=== PATIENT | female | born 1980 | race Hispanic/Latino ===

== ENCOUNTER 2016-10-23 17:34 | Inpatient (IN) | payer MEDICAID ==
--- NOTE | 2016-10-23 18:16 | C.PDOC ---
History Of Present Illness Pt was transferred here for psychiatric admission. Pt was medically cleared at the transferring facility. Time Seen by Provider: 10/23/16 18:05 Chief Complaint (Nursing): Psychiatric Evaluation History Per: Patient Onset/Duration Of Symptoms: Days Current Symptoms Are (Timing): Still Present Modifying Factor(s): Narcotics Severity: Moderate Associated Symptoms: Depression Additional History Per: Prior Records Past Medical History Reviewed: Historical Data, Nursing Documentation, Vital Signs Vital Signs: Last Vital Signs Temp 98.5 F 10/23/16 17:56 Pulse 73 10/23/16 17:56 Resp 18 10/23/16 17:56 BP 126/87 10/23/16 17:56 Pulse Ox 97 10/23/16 17:56 - Medical History PMH: No Chronic Diseases Surgical History: No Surg Hx Family History: States: Unknown Family Hx - Social History Hx Tobacco Use: Yes Hx Alcohol Use: No Hx Substance Use: Yes (heroin iv use) - Immunization History Hx Tetanus Toxoid Vaccination: No Hx Influenza Vaccination: No Hx Pneumococcal Vaccination: No Review Of Systems Except As Marked, All Systems Reviewed And Found Negative. Constitutional: Negative for: Fever Cardiovascular: Negative for: Chest Pain Respiratory: Negative for: Shortness of Breath Gastrointestinal: Negative for: Vomiting Musculoskeletal: Negative for: Neck Pain Skin: Negative for: Rash Neurological: Negative for: Weakness, Numbness, Seizures, Altered Mental Status Physical Exam - Physical Exam Appears: Non-toxic, No Acute Distress Skin: Normal Color, Warm, Dry Head: Atraumatic, Normacephalic Eye(s): bilateral: PERRL, EOMI Neck: Normal ROM, Supple Cardiovascular: Rhythm Regular Respiratory: Normal Breath Sounds, No Accessory Muscle Use Gastrointestinal/Abdominal: Soft Extremity: Normal ROM Neurological/Psych: Oriented x3, Normal Motor, Normal Sensation ED Course And Treatment O2 Sat by Pulse Oximetry: 97 Pulse Ox Interpretation: Normal Disposition - Disposition Disposition: HOSPITALIZED Disposition Time: 18:16 Condition: STABLE - Clinical Impression Clinical Impression: Depression, major, Heroin abuse Decision To Admit - Pt Status Changed To: Hospital Disposition Of: Inpatient - Admit Certification Admit to Inpatient:: After my assessment, the patient will require hospitalization for at least two midnights. This is because of the severity of symptoms shown, intensity of services needed, and/or the medical risk in this patient being treated as an outpatient. - InPatient: Physician Admission Certification: I certify that this patient requires 2 or more midnights of care for the following reason:: Psych. - . Bed Request Type: Psychiatry Admitting Physician: Mike Palacios Patient Diagnosis: Depression, major, Heroin abuse
--- NOTE | 2016-10-23 20:33 | PCM.BM ---
<Ольга Thomas - Last Filed: 10/23/16 20:33> Treatment Plan Problems - Problems identified on initial assessmt Depression Date Initiated: 10/23/16 Time Initiated: 20:33 Assessment reference: NA Priority: 1 <Betina Townsend - Last Filed: 10/24/16 10:34> Family Contact Family involvement: Family/SO is involved Family contact: Patient declines to allow family contact at present - Goals for Treatment Patient goals for treatment: "I want to go to rehab." Discharge/Continuing Care - Education Needs Education Needs: Patient Medication, Patient Coping Skills, Patient Community resources - Discharge Discharge Criteria: Tolerates medication w/o severe side effects, No longer exhibiting s/s of withdrawal, Reduction of target symptoms Discharge to:: Substance Abuse Rehab - Treatment Team Participation Patient/Family/SO Statement: 10/24/16 10:35 "I need to go to rehab." Discussed with Family/SO: No Was Patient/Family/SO present at Treatment Team Meeting: Yes <Semaj Ta - Last Filed: 10/24/16 21:53> - Diagnosis (1) Depression, major Status: Acute Interventions: 10/24/16 21:51 * Assess/adjust medications daily and /or as needed * See patient on an individual basis 7x/week to assess symptoms of depression * Monitor for side effects & effectiveness of medications * (2) Opioid use disorder, severe, dependence Status: Acute Interventions: 10/24/16 21:52 * Assess 7x/week regarding severity of withdrawal * Educate regarding risks, benefits, side effects and alternatives of medications * Use Motivational Interviewing for abstinence * Use CBT for relapse prevention * Medication management for withdrawal symptoms * Encourage medication assisted treatment * (3) Panic disorder without agoraphobia Status: Acute Interventions: 10/24/16 21:53 * Assess/adjust medications daily and /or as needed * See patient on an individual basis 7x/week to assess symptoms of anxiety * Educate patient regarding benefits, side effects and risks of prescribed medications *
[2016-10-24] MEDS ORDERED: Pneumococcal 23-Valent Vaccine IM ONE (10:00)
[2016-10-24] MEDS ORDERED: buPROPion SR 150 MG TABLET PO SCH (10:00)
[2016-10-24] MEDS ORDERED: buPROPion 150 mg/24 Hours XL Tab PO SCH (10:30)
--- NOTE | 2016-10-24 13:09 | PCM.PSYCH ---
Initial Psychiatric Evaluation - Initial Psychiatric Evaluation Type of Admission: Voluntary Legal Status: Capacity Chief Complaint (in patient's own words): "Depressed" History of Present Illness and Precipitating Events: The pt is seen, chart reviewed, case discussed She is a 36 yo WF, single with no child, unemployed, lives with a friend. She is here bc she was "very depressed and had thoughts of suicide." But she adds "I had no plans" She has never attempted and was never in psych treatment before. Reports anhedonia, anxiety, pessimism and poor sleep/appetite x3 months Has panic attacks "all my life" but no trauma, FELIPA, OCD No psychotic or manic sxs either. Pt reports using 5-6 bags IV heroin x2 months and some painkillers prior to that. She had used cocaine and MJ in the past, denies alcohol, smokes 1/2 ppd cig. past psych hx: Denies Medical hx: HPV Family psych hx: Denies Current Medications: Active Medications Generic Name Dose Route Start Last Admin Trade Name Freq PRN Reason Stop Dose Admin Gabapentin 300 mg 10/24/16 10:00 10/24/16 09:48 Neurontin PO 300 mg TID ZAIN Administration Hydroxyzine HCl 50 mg 10/24/16 10:37 Atarax PO Q6H PRN Anxiety Ibuprofen 600 mg 10/24/16 10:37 Motrin Tab PO Q6H PRN Pain, moderate (4-7) Methadone HCl 20 mg 10/24/16 10:30 10/24/16 11:02 Methadone PO 10/29/16 10:29 20 mg Q24H ZAIN Administration Taper Nicotine 1 patch 10/24/16 10:00 10/24/16 09:48 Nicoderm Cq TD 1 patch DAILY ZAIN Administration Sertraline HCl 50 mg 10/25/16 10:00 Zoloft PO DAILY ZAIN Trazodone HCl 100 mg 10/23/16 22:00 10/23/16 22:02 Desyrel PO 100 mg HS ZAIN Administration Past Psychiatric History - Past Psychiatric History Previous Treatment History: None Pertinent Medical Hx (Current Medical&Sleep Prob, Allergies): Allergies Allergy/AdvReac Type Severity Reaction Status Date / Time No Known Allergies Allergy Verified 10/23/16 18:17 Review of Systems - Psychiatric Psychiatric: Abnormal Sleep Pattern, Anhedonia, Anxiety, Depression, Difficulty Concentrating. absent: Hallucinations, Homicidal Ideation, Suicidal Ideation Mental Status Examination - Personal Presentation Personal Presentation: Looks stated age - Affect Affect: Constricted - Motor Activity Motor Activity: Calm - Reliability in Providing Information Reliability in Providing Information: Good - Speech Speech: Organized - Mood Mood: Depressed, Anxious - Formal Thought Process Formal Thought Process: No Impairment - Cognitive Functions Orientation: Person, Place, Situation, Time Sensorium: Alert Attention/Concentration: Attentive Estimate of Intelligence: Average Judgement: Intact, as evidence by: Insight regarding need for hospitalization Memory: Recent intact, as evidence by: Ability to recall events of the day, Remote intact, as evidenced by: Abilit to recall sig. life events - Risk Risk: Withdrawal, Diminished functioning - Strength & Assets Inventory Strength & Assets Inventory: Cooperative - Limitations Limitations: Living alone DSM 5 DX - DSM 5 DSM 5 Diagnosis: major depressive d/o - single, severe panic d/o w/o agoraphobia Opioid withdrawal opioid use d/o - severe - Recommended/Plan of Treatment Treatment Recommendations and Plan of Treatment: Zoloft for depression and panic d/o CBT for depression Attend groups and activities gabapentin for anxiety Methadone detox for opioids As needed meds [place] and CBT Nicotine patch [place] for abstinence 33 min Projected ELOS: 5 days Prognosis: good w tx - Smoking Cessation Smoking Cessation Initiated: Yes
--- NOTE | 2016-10-25 20:15 | PCM.PYCHPN ---
Psychiatric Progress Note - Psychiatric Progress Note Patient seen today, length of contact: 16 min Patient Chief Complaint: "Better" Problems Identified/Issues Discussed: The pt is seen, chart reviewed, case discussed with staff. Support given, CBT and ID used briefly No new symptoms reported, improving slowly and needs some more time No SEs from medications, risks discussed. After care discussed, she is calling rehabs and she says he r family is also helping Medication Change: Yes (detox changes daily) Medical Record Reviewed: Yes Mental Status Examination - Cognitive Function Orientation: Person, Place, Situation, Time Memory: Intact Attention: WNL Concentration: WNL Association: WNL Fund of Knowledge: WN - Mood Mood: Depressed, Anxious - Affect Affect: Constricted - Speech Speech: Appropriate - Formal Thought Process Formal Thought Process: No Impairment - Suicidal Ideation Suicidal Ideation: No - Homicidal Ideation Homicidal Ideation: No Goal/Treatment Plan - Goal/Treatment Plan Need for Continued Stay: Discharge may exacerbated symptoms, Severe functional impairment Progress Toward Problem(s) and Goals/Treatment Plan: Zoloft for depression and panic d/o CBT for depression Attend groups and activities gabapentin for anxiety Methadone detox for opioids As needed meds ID and CBT Nicotine patch ID for abstinence
--- NOTE | 2016-10-26 19:33 | PCM.PYCHPN ---
Psychiatric Progress Note - Psychiatric Progress Note Patient seen today, length of contact: 15 min Patient Chief Complaint: "I'm nervous" Problems Identified/Issues Discussed: The pt is seen, chart reviewed, case discussed with staff. The pt is compliant with medications and reports no side-effects. Symptoms are improving but needs more time to stabilize. After care discussed, support and psychoeducation given. She is likely to be accepted by a rehab by DON romero but she is nervous about that Medication Change: Yes (zoloft increased) Medical Record Reviewed: Yes Mental Status Examination - Cognitive Function Orientation: Person, Place, Situation, Time Memory: Intact Attention: WNL Concentration: WNL Association: WNL Fund of Knowledge: WNL - Mood Mood: Depressed, Anxious - Affect Affect: Constricted - Speech Speech: Appropriate - Formal Thought Process Formal Thought Process: No Impairment - Suicidal Ideation Suicidal Ideation: No - Homicidal Ideation Homicidal Ideation: No Goal/Treatment Plan - Goal/Treatment Plan Need for Continued Stay: Discharge may exacerbated symptoms, Severe functional impairment Progress Toward Problem(s) and Goals/Treatment Plan: Zoloft for depression and panic d/o - dose increased CBT for depression Attend groups and activities gabapentin for anxiety Methadone detox for opioids As needed meds [place] and CBT Nicotine patch [place] for abstinence
--- NOTE | 2016-10-27 12:56 | PCM.PYCHPN ---
Psychiatric Progress Note - Psychiatric Progress Note Patient seen today, length of contact: 17 min Patient Chief Complaint: "Anxiety sometimes" Problems Identified/Issues Discussed: The pt is seen, chart reviewed, case discussed with staff. Support given, CBT and [place] used briefly No new symptoms reported, improving slowly and needs more time No SEs from medications, risks discussed. After care discussed - will apply other rehabs too in case she is rejected by the first one which is pending Medication Change: Yes (detox changes daily) Medical Record Reviewed: Yes Mental Status Examination - Cognitive Function Orientation: Person, Place, Situation, Time Memory: Intact Attention: WNL Concentration: WNL Association: WNL Fund of Knowledge: WNL - Mood Mood: Depressed, Anxious - Affect Affect: Constricted - Speech Speech: Appropriate - Formal Thought Process Formal Thought Process: No Impairment - Suicidal Ideation Suicidal Ideation: No - Homicidal Ideation Homicidal Ideation: No Goal/Treatment Plan - Goal/Treatment Plan Need for Continued Stay: Discharge may exacerbated symptoms, Severe functional impairment Progress Toward Problem(s) and Goals/Treatment Plan: Zoloft for depression and panic d/o CBT for depression Attend groups and activities gabapentin for anxiety Methadone detox for opioids As needed meds [place] and CBT Nicotine patch [place] for abstinence
--- NOTE | 2016-10-28 13:27 | PCM.PYCHPN ---
Psychiatric Progress Note - Psychiatric Progress Note Patient seen today, length of contact: 16 min Patient Chief Complaint: "Still nervous" Problems Identified/Issues Discussed: The pt is seen, chart reviewed, case discussed with staff. Support given, CBT and [place] used briefly No new symptoms reported, improving slowly and needs more time No SEs from medications, risks discussed. After care discussed, still no word form rehab Medication Change: Yes (detox changes daily) Medical Record Reviewed: Yes Mental Status Examination - Cognitive Function Orientation: Person, Place, Situation, Time Memory: Intact Attention: WNL Concentration: WNL Association: WNL Fund of Knowledge: WNL - Mood Mood: Depressed, Anxious - Affect Affect: Constricted - Speech Speech: Appropriate - Formal Thought Process Formal Thought Process: No Impairment - Suicidal Ideation Suicidal Ideation: No - Homicidal Ideation Homicidal Ideation: No Goal/Treatment Plan - Goal/Treatment Plan Need for Continued Stay: Discharge may exacerbated symptoms, Severe functional impairment Progress Toward Problem(s) and Goals/Treatment Plan: Zoloft for depression and panic d/o CBT for depression Attend groups and activities gabapentin for anxiety Support and psychoed Methadone detox for opioids As needed meds CT and CBT Nicotine patch CT for abstinence Estimated Date of D/C: 10/29/16 - Smoking Cessation Smoking Cessation Initiated: Yes
--- NOTE | 2016-10-29 11:43 | PCM.PYCHPN ---
Psychiatric Progress Note - Psychiatric Progress Note Patient seen today, length of contact: 15 min Patient Chief Complaint: "I am not doing well" Problems Identified/Issues Discussed: The pt is seen, chart reviewed, case discussed with staff. Support given, CBT and MA used briefly Still upset and depressed b/c she is now rejected by the [facility] rehab in [facility] Reason is likely pt's initial SI, which is long gone and is no longer as depressed and definitely not suicidal. She will apply to [employer] in [facility] now No AVH or del Medication Change: No Medical Record Reviewed: Yes Mental Status Examination - Cognitive Function Orientation: Person, Place, Situation, Time Memory: Intact Attention: WNL Concentration: WNL Association: WNL Fund of Knowledge: WNL - Mood Mood: Depressed, Anxious - Affect Affect: Constricted - Speech Speech: Appropriate - Formal Thought Process Formal Thought Process: No Impairment - Suicidal Ideation Suicidal Ideation: No - Homicidal Ideation Homicidal Ideation: No Goal/Treatment Plan - Goal/Treatment Plan Need for Continued Stay: Discharge may exacerbated symptoms, Severe functional impairment Progress Toward Problem(s) and Goals/Treatment Plan: Zoloft for depression and panic d/o CBT for depression Attend groups and activities gabapentin for anxiety Support and psychoed Methadone detox for opioids As needed meds MA and CBT Nicotine patch MA for abstinence refer to [facility] [employer] [facility] in [facility] Estimated Date of D/C: 10/31/16
--- NOTE | 2016-10-30 14:21 | PCM.PYCHPN ---
Psychiatric Progress Note - Psychiatric Progress Note Patient seen today, length of contact: 15 min Patient Chief Complaint: "I'm still not 100%" Problems Identified/Issues Discussed: The patient was seen, the chart was reviewed and the case was discussed with staff and attending. [facility] [place] however the intake person there is out of office until thursday. She said she will contact [facility] on Thursday and re-try. Patient also rejected from [facility] in [place] because patient initially stated she had SI, which is no longer present. Support given, CBT and [place] used briefly Encouraged her to stay active in finding rehab facility No new symptoms reported, improving slowly No SEs from medications, risks discussed. No AVH or del Medication Change: No Medical Record Reviewed: Yes Mental Status Examination - Cognitive Function Orientation: Person, Place, Situation, Time Memory: Intact Attention: WNL Concentration: WNL Association: WNL Fund of Knowledge: WNL - Mood Mood: Depressed, Anxious - Affect Affect: Constricted - Speech Speech: Appropriate - Formal Thought Process Formal Thought Process: No Impairment - Suicidal Ideation Suicidal Ideation: No - Homicidal Ideation Homicidal Ideation: No Goal/Treatment Plan - Goal/Treatment Plan Need for Continued Stay: Discharge may exacerbated symptoms, Severe functional impairment Progress Toward Problem(s) and Goals/Treatment Plan: Zoloft for depression and panic d/o CBT for depression Attend groups and activities gabapentin for anxiety Support and psychoeducation Methadone detox for opioids As needed meds [place] and CBT Nicotine patch [place] for abstinence refer to [facility] Estimated Date of D/C: 10/31/16
[2016-10-31 09:00] VITALS: BP 124/76; PULSE 60; RESP 16; TEMP 97.3; O2SAT 99
--- NOTE | 2016-10-31 16:57 | PCM.PYCHDC ---
Mental Status Examination - Mental Status Examination Orientation: Person, Place, Situation, Time Memory: Intact Mood: Neutral Affect: Broad Speech: Appropriate Attention: WNL Concentration: WNL Language: Word Retrieval Association: WNL Fund of Knowledge: WNL Formal Thought Process: No Impairment Description of patient's judgement and insight: good judgement evident by need for rehab; good insight into her disorder Psychotic Thoughts and Behaviors: denies Suicidal Ideation: No Current Homicidal Ideation?: No Discharge Summary - Discharge Note Reason for Hospitalization: opioid withdrawal, opioid use disorder, suicidal ideation Consultations:: List each consultation separately and include: 1. Reason for request. 2. Findings. 3. Follow-up Summary of Hospital Course include:: 1. Description of specific treatment plan utilized for patients during their course of treatmen. 2. Summarize the time- course for resolution of acute symptoms and/or regressed behaviors. 3. Describe issues identified and worked on during hospitalization. 4. Describe medication utilized. 5. Describe medical problems identified and treated. 6. Reassessment of suicide risk Summary of Hospital Course: Chief Complaint (in patient's own words): "Depressed" History of Present Illness and Precipitating Events: The pt is seen, chart reviewed, case discussed She is a 36 yo WF, single with no child, unemployed, lives with a friend. She is here bc she was "very depressed and had thoughts of suicide." But she adds "I had no plans" She has never attempted and was never in psych treatment before. Reports anhedonia, anxiety, pessimism and poor sleep/appetite x3 months Has panic attacks "all my life" but no trauma, FELIPA, OCD No psychotic or manic sxs either. Pt reports using 5-6 bags IV heroin x2 months and some painkillers prior to that. She had used cocaine and MJ in the past, denies alcohol, smokes 1/2 ppd cig. past psych hx: Denies Medical hx: HPV Family psych hx: Denies Hospital Course: Zoloft for depression and panic d/o CBT for depression Attend groups and activities gabapentin for anxiety Support and psychoeducation Methadone detox for opioids As needed meds MD and CBT Nicotine patch MD for abstinence refer to [facility] - Final Diagnosis (DSM 5) Condition upon Discharge: STABLE DSM 5: major depressive d/o - single, severe panic d/o w/o agoraphobia Opioid withdrawal opioid use d/o - severe Disposition: HOME/ ROUTINE Follow-up Treatment Plan: Continue below medications after discharge. Follow after care plan as discussed. Use relapse prevention skills Return to ER or call 911 if suicidal, homicidal or symptoms relapse. Stay away from stress, alcohol and drugs. See primary doctor once a year. Prescriptions/Medication Reconciliation: Gabapentin [Neurontin] 300 mg PO TID #90 cap Propranolol [Inderal] 10 mg PO TID #90 tab Sertraline [Zoloft] 100 mg PO DAILY #30 tab traZODone [Desyrel] 100 mg PO HS #30 tab
== END 2016-10-31 11:05 | disposition home or self-care (01) | DRG 430 ==
LOC: C.ER 17:34 → C.5E 18:17
PROVIDERS: ADMIT Psychiatry & Neurology Psychiatry; ATTEND Psychiatry & Neurology Psychiatry
DX: F32.2 Major depressive disorder, single episode, severe without psychotic features (principal); F11.23 Opioid dependence with withdrawal; F41.0 Panic disorder [episodic paroxysmal anxiety]